=== PATIENT | female | born 1995 | race Caucasian/White ===

== ENCOUNTER → 2018-11-12 10:40 | Outpatient (CLI) | payer BC, SELFPAY ==
[2018-11-13 09:27] LABS: ASO Titer 91.3 IU/mL (0.0-200.0)
== END ==
PROVIDERS: Family Provider Nurse Practitioner Family; PCP Nurse Practitioner Family; Visit Provider Otolaryngology Otolaryngology/Facial Plastic Surgery
DX: J03.00 Acute streptococcal tonsillitis, unspecified (principal)
CPT/HCPCS: 36415; 86060; 87070

== ENCOUNTER 2022-03-25 17:50 | Outpatient (CLI) | payer MEDICAID, SELFPAY ==
[2022-03-25] VITALS (16 sets, daily range): BP systolic 129; BP diastolic 86; PULSE 84–105; TEMP 37.2; O2SAT 81–99; BMI 32.4
[2022-03-25 19:31] LABS: ROM Internal Control Test YES-OK TO RESULT pt. (Internal QC); ROM Patient Test Negative (Negative)
--- NOTE | 2022-03-25 20:19 | OB.TRI.NOTE ---
HPI - General HPI Narrative MOY VENTURA, is a 26 F who presents with vaginal discharge PFSH PFSH Home Medications 1 tab PO.IVFORM DAILY 03/25/22 [History Last Taken Unknown] Allergy/AdvReac Type Severity Reaction Status Date / Time No Known Allergies Allergy Verified 03/25/22 18:12 Surgical History (Updated 03/25/22 @ 18:14 by Magali Henning) H/O wisdom tooth extraction Social History Smoking Status: Never smoker NST FHR Rate Baby A Baseline: 130 Variability:: Moderate Accelerations:: 15 x 15 Decelerations:: None NST Reactive:: Yes Uterine Activity:: q5-10 min Assessment & Plan (1) : PLAN: Patient arrives normally being seen in [place]. Currently with vaginal discharge. Has on and off felt contractions for the past several weeks. Cervical exam in office check was 4 cm, unchanged at this visit. No signs of labor. Vaginal culture sent, informed will take days to come back. Overall no apparent infectious contacts. Abdomen soft, uterus nontender. Vital signs stable, afebrile. All reassuring. Okay to discharge home with follow-up scheduled appointments
[2022-03-25 21:07] LABS: Chlamydia Trachomatis by PCR Negative (Negative); Neisserai gonorrhoeae by PCR Negative (Negative); Probe Check PASS; Sample Adequacy Control PASS; Specimen Processing Control PASS; Trichomonas Vag DNA by PCR Negative (Negative)
== END 2022-03-25 20:05 | disposition home or self-care (01) ==
LOC: WPOUT 18:01 → WP 18:02
PROVIDERS: Visit Provider Obstetrics & Gynecology
DX: O99.891 Other specified diseases and conditions complicating pregnancy (principal); N89.8 Other specified noninflammatory disorders of vagina; Z3A.00 Weeks of gestation of pregnancy not specified
CPT/HCPCS: 36415; 59025; 59050; 84112; 87491; 87591; 87661; 99218; G0378